=== PATIENT | female | born 1950 | race Caucasian/White ===

== ENCOUNTER 2018-12-08 12:14 | Emergency (ER) | payer MEDICARE ==
[~2018-12-08] VITALS: Ht 162.6 cm; Wt 54.1 kg
[~2018-12-08 12:14] MED LIST: AMOCLA875 PO; CALCAVITDA; CETI5 PO; CITA10S PO; CITA20 PO; FISH1000 PO; MULVITA PO; OMEP20ER PO; PROM25 PO; RANI150 PO; RISP1 PO; TOCO400; [UNRECOGNIZED DRUG - OTHER]
[2018-12-08 13:03] LABS: BASOPHILS ABSOLUTE AUTO 0.02 K/mm3 (0.00-0.23); BASOPHILS PERCENT AUTO 0 % (0-2); EOSINOPHILS ABSOLUTE AUTO 0.71 K/mm3 (0.00-0.68); EOSINOPHILS PERCENT AUTO 15 % (0-6); Hematocrit 31.8 % (33.0-51.0); IMMATURE GRAN ABSOLUTE AUTO 0.01 K/mm3 (0.00-0.10); IMMATURE GRAN PERCENT AUTO 0 % (0-1); LYMPHOCYTES ABSOLUTE AUTO 0.59 K/mm3 (0.84-5.20); LYMPHOCYTES PERCENT AUTO 12 % (21-46); MONOCYTES ABSOLUTE AUTO 0.33 K/mm3 (0.16-1.47); MONOCYTES PERCENT AUTO 7 % (4-13); Mean Corpuscular HGB 27.5 pg (26.0-34.0); Mean Corpuscular HGB Conc 31.4 g/dL (31.5-36.5); Mean Corpuscular Volume 88 fL (80-100); Mean Platelet Volume 9.8 fL (9.1-12.4); NEUTROPHILS ABSOLUTE AUTO 3.23 K/mm3 (1.96-9.15); NEUTROPHILS PERCENT AUTO 66 % (41-73); Platelet Count 254 K/mm3 (150-400); RDW Coefficient Variation 13.8 % (11.7-14.2); Red Blood Cell Count 3.63 M/mm3 (3.80-5.20); White Blood Cell Count 4.89 K/mm3 (4.00-11.30)
[2018-12-08 13:24] LABS: Alanine Aminotransfer (ALT/SGP 31 U/L (12-78); Albumin, Blood 3.7 g/dL (3.4-5.0); Albumin/Globulin Ratio 1.3 (0.8-1.8); Alk Phos 121 U/L (50-136); Anion Gap 9 mmol/L (6-16); Aspartate Aminotrans (AST/SGOT 32 U/L (12-37); Bilirubin, Total 0.8 mg/dL (0.1-1.0); Blood Urea Nitrogen 4 mg/dL (8-24); Bun/Creatinine Ratio 6.1 (12.0-20.0); CO2, Blood 25 mmol/L (21-32); Calcium, Blood 8.6 mg/dL (8.5-10.1); Chloride, Blood 101 mmol/L (98-108); Creatinine, Blood 0.65 mg/dL (0.40-1.00); Globulin, Blood 2.8 g/dL (2.2-4.0); Glomerular Filtration Rate >60 (60-); Glucose, Blood 99 mg/dL (70-99); Potassium, Blood 3.8 mmol/L (3.5-5.5); Sodium, Blood 135 mmol/L (136-145); Total Protein, Blood 6.5 g/dL (6.4-8.2); Troponin I <0.015 ng/mL (0.000-0.040)
== END 2018-12-08 16:29 | disposition home or self-care (01) ==
LOC: ER 12:14
PROVIDERS: Physician Assistant
DX: R00.2 Palpitations (principal); Z79.899 Other long term (current) drug therapy
CPT/HCPCS: 36415; 71046; 80053; 84484; 85025; 93005; 93010; 93225; 93226; 96360; 99285-25; J7030

== ENCOUNTER → 2019-01-04 | Outpatient (CLI) | payer MEDICARE ==
[~2019-01-04] MED LIST changes: +ANAS1
[2019-01-08 13:34] LABS: Stool Occult Bld Immuno 1 Positive (NEGATIVE); Stool Occult Bld Immuno 2 Positive (NEGATIVE)
== END | disposition home or self-care (01) ==
LOC: LAB SHORT 18:58 → LAB 18:58 → LAB FUT 01-01 11:00
PROVIDERS: Internal Medicine
DX: D50.9 Iron deficiency anemia, unspecified (principal)
CPT/HCPCS: G0328

== ENCOUNTER 2019-03-31 08:46 | Day surgery (SDC) | payer MEDICARE ==
[~2019-03-31] VITALS: Ht 162.6 cm; Wt 50.7 kg
[~2019-03-31 08:46] MED LIST changes: -ANAS1
[2019-03-31] MEDS ORDERED: ANAS1 (09:16)
== END 2019-03-31 10:42 | disposition home or self-care (01) ==
LOC: ORSCSDS 08:46
PROVIDERS: Surgery
PROC: 0DJD8ZZ Inspection of Lower Intestinal Tract, Via Natural or Artificial Opening Endoscopic (ICD-10-PCS; principal; 2019-03-31 10:00)
DX: R19.5 Other fecal abnormalities (principal); K57.30 Diverticulosis of large intestine without perforation or abscess without bleeding; K64.8 Other hemorrhoids; Z79.899 Other long term (current) drug therapy
CPT/HCPCS: J2704; J7120

== ENCOUNTER 2021-08-05 09:14 | Day surgery (SDC) | payer MEDICARE, OTHER ==
[~2021-08-05] VITALS: Ht 162.6 cm; Wt 56.8 kg
[~2021-08-05 09:14] MED LIST changes: +ANAS1 PO; +ATOR20 PO
--- NOTE | 2021-08-05 10:12 | NUR ---
Pre-Op teaching done. Pt verbalizes understanding. History, Chart, Medications and Allergies reviewed before start of procedure.
--- NOTE | 2021-08-05 11:29 | NUR ---
PT TOLERATING ORAL FLUIDS AND CHEESE. VSS. PT STATES NO FURTHER NEEDS AT THIS TIME. WILL CONTINUE TO MONITOR.
--- NOTE | 2021-08-05 12:21 | NUR ---
ASSUMED CARE OF PT. DENIES PAIN, TOLERATING PO. DRESSING D/I.
--- NOTE | 2021-08-05 12:52 | NUR ---
REPORT GIVEN TO ROCCO VELARDE RN.
--- NOTE | 2021-08-05 13:07 | NUR ---
Patient up to Ambulate independently. Gait steady. Discharge instructions reviewed with patient. Patient verbalizes understanding. Copy given to patient to take home. Discharged via wheelchair to private car for ride home.
== END 2021-08-05 22:44 | disposition home or self-care (01) ==
LOC: ORSCMMR 09:14 → ORD 10:30 → ORSCMMR 22:44
PROVIDERS: Surgery
PROC: 0JB70ZZ Excision of Back Subcutaneous Tissue and Fascia, Open Approach (ICD-10-PCS; principal; 2021-08-05 10:30)
DX: D17.1 Benign lipomatous neoplasm of skin and subcutaneous tissue of trunk (principal); J44.9 Chronic obstructive pulmonary disease, unspecified; Z87.891 Personal history of nicotine dependence; F31.9 Bipolar disorder, unspecified; F43.10 Post-traumatic stress disorder, unspecified; E78.5 Hyperlipidemia, unspecified; Z79.899 Other long term (current) drug therapy
CPT/HCPCS: 88304; A9270; J0690; J1100; J1885; J2370; J2405; J2704; J3010; J7120

== ENCOUNTER 2022-01-01 12:55 | Observation (INO) | payer MEDICARE, OTHER ==
[~2022-01-01] VITALS: Ht 162.6 cm; Wt 59.0 kg
[2022-01-01 14:08] LABS: BASOPHILS ABSOLUTE AUTO 0.05 K/mm3 (0.00-0.23); BASOPHILS PERCENT AUTO 1 % (0-2); EOSINOPHILS ABSOLUTE AUTO 0.37 K/mm3 (0.00-0.68); EOSINOPHILS PERCENT AUTO 7 % (0-6); Hemoglobin 12.5 g/dL (11.5-16.0); IMMATURE GRAN ABSOLUTE AUTO 0.01 K/mm3 (0.00-0.10); IMMATURE GRAN PERCENT AUTO 0 % (0-1); LYMPHOCYTES ABSOLUTE AUTO 0.91 K/mm3 (0.84-5.20); LYMPHOCYTES PERCENT AUTO 17 % (21-46); MONOCYTES ABSOLUTE AUTO 0.48 K/mm3 (0.16-1.47); MONOCYTES PERCENT AUTO 9 % (4-13); Mean Corpuscular HGB 30.7 pg (26.0-34.0); Mean Corpuscular HGB Conc 33.8 g/dL (31.5-36.5); Mean Corpuscular Volume 91 fL (80-100); Mean Platelet Volume 9.5 fL (9.1-12.4); NEUTROPHILS ABSOLUTE AUTO 3.44 K/mm3 (1.96-9.15); NEUTROPHILS PERCENT AUTO 65 % (41-73); Platelet Count 243 K/mm3 (150-400); RDW Coefficient Variation 12.9 % (11.7-14.2); RDW Standard Deviation 42.7 fL (35.1-46.3); Red Blood Cell Count 4.07 M/mm3 (3.80-5.20); White Blood Cell Count 5.26 K/mm3 (4.00-11.30)
[2022-01-01 14:25] LABS: Albumin, Blood 3.4 g/dL (3.4-5.0); Albumin/Globulin Ratio 1.3 (0.8-1.8); Bilirubin, Total 0.5 mg/dL (0.1-1.0); Bun/Creatinine Ratio 13.4 (12.0-20.0); Calcium, Blood 8.9 mg/dL (8.5-10.1); Creatinine, Blood 0.6 mg/dL (0.40-1.00); Globulin, Blood 2.7 g/dL (2.2-4.0); Potassium, Blood 4.1 mmol/L (3.5-5.5); Total Protein, Blood 6.1 g/dL (6.4-8.2)
[2022-01-01] MEDS ORDERED: ASPI81CH PO (16:34)
[2022-01-01] MEDS ORDERED: ATORVASTATIN CA20 MG PO (20:55)
[2022-01-01] MEDS ORDERED: ANASTROZOLE1 M7 PO (20:55)
[2022-01-02 04:42] LABS: BASOPHILS ABSOLUTE AUTO 0.07 K/mm3 (0.00-0.23); BASOPHILS PERCENT AUTO 1 % (0-2); EOSINOPHILS ABSOLUTE AUTO 0.41 K/mm3 (0.00-0.68); EOSINOPHILS PERCENT AUTO 8 % (0-6); Hematocrit 36.6 % (33.0-51.0); Hemoglobin 11.9 g/dL (11.5-16.0); IMMATURE GRAN PERCENT AUTO 0 % (0-1); LYMPHOCYTES ABSOLUTE AUTO 1.37 K/mm3 (0.84-5.20); LYMPHOCYTES PERCENT AUTO 27 % (21-46); MONOCYTES ABSOLUTE AUTO 0.53 K/mm3 (0.16-1.47); MONOCYTES PERCENT AUTO 10 % (4-13); Mean Corpuscular HGB 29.9 pg (26.0-34.0); Mean Corpuscular HGB Conc 32.5 g/dL (31.5-36.5); Mean Corpuscular Volume 92 fL (80-100); Mean Platelet Volume 9.4 fL (9.1-12.4); NEUTROPHILS ABSOLUTE AUTO 2.79 K/mm3 (1.96-9.15); NEUTROPHILS PERCENT AUTO 54 % (41-73); Platelet Count 222 K/mm3 (150-400); RDW Coefficient Variation 12.8 % (11.7-14.2); RDW Standard Deviation 43.6 fL (35.1-46.3); Red Blood Cell Count 3.98 M/mm3 (3.80-5.20); White Blood Cell Count 5.17 K/mm3 (4.00-11.30)
--- NOTE | 2022-01-02 04:43 | NUR ---
SHIFT SUMMARY: PATIENT ADMITTED FROM ED FOR NEAR SYNCOPE AND CHEST PAIN. PATIENT DENIES CHEST PAIN/PRESSURE AT TIME OF ADMIT. TELE = NSR. CON BIOX SAT > 96% ON RA. AMBULATES TO BATHROOM STEADY GAIT WITHOUT USE OF ASSISTIVE DEVICES, SBA FOR SAFETY. ORTHOSTATIC VITALS COMPLETED, SEE FLOWSHEET FOR DETAILS. HEADACHE TREATED PER EMAR.
[2022-01-02 05:02] LABS: Bun/Creatinine Ratio 9.2 (12.0-20.0); Calcium, Blood 8.7 mg/dL (8.5-10.1); Creatinine, Blood 0.55 mg/dL (0.40-1.00); Potassium, Blood 3.9 mmol/L (3.5-5.5)
--- NOTE | 2022-01-02 16:56 | NUR ---
DISCHARGE NOTE: PT WAS DISCHARGED TO CARE OF [facility] TRANSPORT TO HOME. RN REVIEWED DISCHARGE INSTRUCTIONS WITH PT'S SPOUSE. REMOVED IV FROM LEFT AC, PT TOLERATED PROCEDURE WELL. PT WAS DISCHARGED WITH ALL BELONGINGS.
--- NOTE | 2022-01-02 17:49 | NUR ---
SHIFT SUMMARY PT UNDERWENT ONE DAY PROTOCOL STRESS TEST WITH NORMAL RESULTS. OK FOR DISCHARGE. RN REVIEWED HOME DISCHARGE INSTRUCTIONS WITH PT AND PT'S FAMILY. REVIEWED IV, PT TOLERATED PROCEDURE WELL. PT WITH HX OF ANXIETY, REQUESTED FEMALE POWDER CORE TESTER PRESENT IN ROOM WHENEVER A MALE STAFF WAS PROVIDING CARE. PT COMMENTING ON FATIGUE, CHRONIC BACK PAIN. PT STATES SHE WILL CALL MD TO FOLLOW UP WITHIN ONE WEEK.
--- NOTE | 2022-01-02 18:02 | NUR ---
DISCHARGE NOTE PT WAS DISCHARGED AT 1754 VIA WHEELCHAIR PROPELLED BY NETWORK DESIGNER TO PRIVATE VEHICLE DRIVEN BY FAMILY. PT WAS DISCHARGED WITH ALL PERSONAL BELONGINGS AND A COPY OF DISCHARGE INSTRUCTIONS. PT TOLERATED TRANSPORT WELL.
== END 2022-01-02 17:54 | disposition home or self-care (01) ==
LOC: ER 12:55 → MEDS 19:30 → ER 19:30 → MEDS 21:21
PROVIDERS: Family Medicine; Physician Assistant; ADMIT Internal Medicine
DX: R07.89 Other chest pain (principal); R55 Syncope and collapse; F32.A Depression, unspecified; J44.9 Chronic obstructive pulmonary disease, unspecified; R00.2 Palpitations; E78.5 Hyperlipidemia, unspecified
CPT/HCPCS: 36415; 71046; 78452; 80048; 80053; 83690; 83735; 84443; 84484; 85025; 93005; 93010; 93017; 93306; 94760; 94762; 99285-25; A9270; A9500; G0378; J0706; J1650; J2785; J7030

== ENCOUNTER 2022-03-18 12:21 | Emergency (ER) | payer MEDICARE, OTHER ==
[~2022-03-18] VITALS: Ht 175.3 cm; Wt 59.0 kg
[~2022-03-18 12:21] MED LIST changes: +ANASTROZOLE1 M7 PO; +ASPI81CH PO; +ATORVASTATIN CA20 MG PO
[2022-03-18 13:03] LABS: BASOPHILS ABSOLUTE AUTO 0.05 K/mm3 (0.00-0.23); BASOPHILS PERCENT AUTO 1 % (0-2); EOSINOPHILS ABSOLUTE AUTO 0.25 K/mm3 (0.00-0.68); EOSINOPHILS PERCENT AUTO 5 % (0-6); Hematocrit 38.7 % (33.0-51.0); Hemoglobin 12.8 g/dL (11.5-16.0); IMMATURE GRAN ABSOLUTE AUTO 0.02 K/mm3 (0.00-0.10); IMMATURE GRAN PERCENT AUTO 0 % (0-1); LYMPHOCYTES ABSOLUTE AUTO 1.15 K/mm3 (0.84-5.20); LYMPHOCYTES PERCENT AUTO 23 % (21-46); MONOCYTES ABSOLUTE AUTO 0.46 K/mm3 (0.16-1.47); MONOCYTES PERCENT AUTO 9 % (4-13); Mean Corpuscular HGB 30.5 pg (26.0-34.0); Mean Corpuscular HGB Conc 33.1 g/dL (31.5-36.5); Mean Corpuscular Volume 92 fL (80-100); Mean Platelet Volume 9.5 fL (9.1-12.4); NEUTROPHILS PERCENT AUTO 62 % (41-73); Platelet Count 205 K/mm3 (150-400); RDW Coefficient Variation 12.8 % (11.7-14.2); RDW Standard Deviation 43.3 fL (35.1-46.3); White Blood Cell Count 5.03 K/mm3 (4.00-11.30)
[2022-03-18 13:31] LABS: Albumin, Blood 3.5 g/dL (3.4-5.0); Albumin/Globulin Ratio 1.2 (0.8-1.8); Bilirubin, Total 0.5 mg/dL (0.1-1.0); Bun/Creatinine Ratio 27.8 (12.0-20.0); Calcium, Blood 8.8 mg/dL (8.5-10.1); Creatinine, Blood 0.61 mg/dL (0.40-1.00); Globulin, Blood 2.9 g/dL (2.2-4.0); Magnesium, Blood 2.1 mg/dL (1.6-2.4); Potassium, Blood 4.1 mmol/L (3.5-5.5); Thyroid Stimulating Hormone 0.928 uIU/mL (0.360-4.800); Total Protein, Blood 6.4 g/dL (6.4-8.2)
== END 2022-03-18 15:44 | disposition home or self-care (01) ==
LOC: ER 12:21
PROVIDERS: Physician Assistant
DX: R00.2 Palpitations (principal); F32.A Depression, unspecified; Z79.899 Other long term (current) drug therapy; Z79.82 Long term (current) use of aspirin
CPT/HCPCS: 36415; 71045; 80053; 83735; 84443; 84484; 85025; 93005; 93010

== ENCOUNTER → 2022-09-26 | Outpatient (CLI) | payer MEDICARE, OTHER ==
[2022-09-26 19:02] LABS: BASOPHILS ABSOLUTE AUTO 0.06 K/mm3 (0.00-0.23); BASOPHILS PERCENT AUTO 1 % (0-2); EOSINOPHILS ABSOLUTE AUTO 0.14 K/mm3 (0.00-0.68); EOSINOPHILS PERCENT AUTO 2 % (0-6); Hematocrit 36.4 % (33.0-51.0); Hemoglobin 11.9 g/dL (11.5-16.0); IMMATURE GRAN ABSOLUTE AUTO 0.02 K/mm3 (0.00-0.10); IMMATURE GRAN PERCENT AUTO 0 % (0-1); LYMPHOCYTES ABSOLUTE AUTO 1.09 K/mm3 (0.84-5.20); LYMPHOCYTES PERCENT AUTO 14 % (21-46); MONOCYTES PERCENT AUTO 9 % (4-13); Mean Corpuscular HGB 29.6 pg (26.0-34.0); Mean Corpuscular HGB Conc 32.7 g/dL (31.5-36.5); Mean Corpuscular Volume 91 fL (80-100); Mean Platelet Volume 9.5 fL (9.1-12.4); NEUTROPHILS ABSOLUTE AUTO 5.68 K/mm3 (1.96-9.15); NEUTROPHILS PERCENT AUTO 74 % (41-73); Platelet Count 287 K/mm3 (150-400); RDW Coefficient Variation 13.4 % (11.7-14.2); Red Blood Cell Count 4.02 M/mm3 (3.80-5.20); White Blood Cell Count 7.69 K/mm3 (4.00-11.30)
[2022-09-26 20:04] LABS: Albumin, Blood 3.6 g/dL (3.4-5.0); Albumin/Globulin Ratio 1.2 (0.8-1.8); Bilirubin, Total 0.3 mg/dL (0.1-1.0); Calcium, Blood 8.7 mg/dL (8.5-10.1); Creatinine, Blood 0.59 mg/dL (0.40-1.00); Potassium, Blood 4.4 mmol/L (3.5-5.5); Thyroid Stimulating Hormone 0.719 uIU/mL (0.360-4.800); Total Protein, Blood 6.6 g/dL (6.4-8.2)
== END | disposition home or self-care (01) ==
LOC: LAB 17:53 → LAB SHORT 17:53
PROVIDERS: Student in an Organized Health Care Education/Training Program
DX: R00.2 Palpitations (principal)
CPT/HCPCS: 80053; 84443; 85025

== ENCOUNTER 2022-11-03 10:50 | Observation (INO) | payer MEDICARE, OTHER ==
[~2022-11-03] VITALS: Ht 170.2 cm; Wt 58.9 kg
[2022-11-03 11:32] LABS: BASOPHILS ABSOLUTE AUTO 0.06 K/mm3 (0.00-0.23); BASOPHILS PERCENT AUTO 2 % (0-2); EOSINOPHILS ABSOLUTE AUTO 0.14 K/mm3 (0.00-0.68); EOSINOPHILS PERCENT AUTO 4 % (0-6); Hematocrit 38.8 % (33.0-51.0); Hemoglobin 13.2 g/dL (11.5-16.0); IMMATURE GRAN PERCENT AUTO 0 % (0-1); LYMPHOCYTES ABSOLUTE AUTO 0.82 K/mm3 (0.84-5.20); LYMPHOCYTES PERCENT AUTO 21 % (21-46); MONOCYTES ABSOLUTE AUTO 0.36 K/mm3 (0.16-1.47); MONOCYTES PERCENT AUTO 9 % (4-13); Mean Corpuscular HGB 29.6 pg (26.0-34.0); Mean Corpuscular Volume 87 fL (80-100); Mean Platelet Volume 8.8 fL (9.1-12.4); NEUTROPHILS PERCENT AUTO 65 % (41-73); Platelet Count 268 K/mm3 (150-400); RDW Coefficient Variation 13.4 % (11.7-14.2); RDW Standard Deviation 42.7 fL (35.1-46.3); Red Blood Cell Count 4.46 M/mm3 (3.80-5.20); White Blood Cell Count 3.98 K/mm3 (4.00-11.30)
[2022-11-03 11:50] LABS: Ethanol (Alcohol), Blood, Med <3 mg/dL; Salicylate <1.7 mg/dL (2.8-20.0)
[2022-11-03 11:53] LABS: Acetaminophen, Random <2.0 ug/mL (10.0-30.0); Alanine Aminotransfer (ALT/SGP 27 U/L (12-78); Albumin, Blood 3.8 g/dL (3.4-5.0); Albumin/Globulin Ratio 1.3 (0.8-1.8); Alk Phos 112 U/L (50-136); Anion Gap 3 mmol/L (6-16); Aspartate Aminotrans (AST/SGOT 20 U/L (12-37); Bilirubin, Total 1.1 mg/dL (0.1-1.0); Blood Urea Nitrogen 7 mg/dL (8-24); Bun/Creatinine Ratio 13.7 (12.0-20.0); CO2, Blood 27 mmol/L (21-32); Calcium, Blood 8.9 mg/dL (8.5-10.1); Chloride, Blood 91 mmol/L (98-108); Creatinine, Blood 0.51 mg/dL (0.40-1.00); Glomerular Filtration Rate 100 (60-); Glucose, Blood 95 mg/dL (70-99); Potassium, Blood 4.2 mmol/L (3.5-5.5); Sodium, Blood 121 mmol/L (136-145); Total Protein, Blood 6.8 g/dL (6.4-8.2)
[2022-11-03 12:41] LABS: Source, Urine Clean Catch
[2022-11-03 12:50] LABS: Bilirubin, Urine Neg (Neg); Blood, Urine Neg (Neg); Glucose Qualitative, Urine Neg (Neg); Ketones, Urine 1+ (Neg); Leukocyte Esterase, Urine Neg (Neg); Nitrite, Urine Neg (Neg); Protein, Urine Neg (Neg); Specific Gravity, Urine 1.005 (1.003-1.022); Urobilinogen, Urine NORM (Normal)
[2022-11-03 13:04] LABS: Appearance, Urine Clear (Clear); Color, Urine Yellow (P-Yellow)
[2022-11-03 13:18] LABS: U Amphetamine Screen Not Detected; U Barbituate Screen Not Detected; U Benzodiazapine Screen Not Detected; U Buprenorphine Screen Not Detected; U Cannabinoids Screen Not Detected; U Cocaine Screen Not Detected; U Methadone Screen Not Detected; U Methamphetamine Screen Not Detected; U Opiates Screen Not Detected; U Oxycodone Screen Not Detected; U Phencyclidine Screen Not Detected; U Propoxyphene Screen Not Detected
[2022-11-03 17:17] VITALS: BP 155/67
--- NOTE | 2022-11-03 17:50 | NUR ---
PT ARRIVED TO ROOM VIA CART AT 1715 WITH NO DISTRESS NOTED AND SITTER ACCOMPANIED HER. PT WAS SETTLED INTO ROOM AND CALL LIGHT IS WITHIN REACH. NO DISTRESS NOTED AT THIS TIME AOX4 WILL CONTINUE TO MONITOR.
[2022-11-03 20:23] LABS: Bun/Creatinine Ratio 16.5 (12.0-20.0); Calcium, Blood 8.6 mg/dL (8.5-10.1); Creatinine, Blood 0.55 mg/dL (0.40-1.00); Potassium, Blood 3.9 mmol/L (3.5-5.5)
--- NOTE | 2022-11-03 21:03 | NUR ---
PT DENIES SI WHEN ASKED, BUT SITTERS REPORTED SI VERBALIZATIONS NOTED WJHILE MONITORING PT
[2022-11-03 21:33] VITALS: BP 142/70
--- NOTE | 2022-11-03 21:50 | NUR ---
START OF SHIFT THIS STUDENT NURSE WAS INTRODUCED TO SCOOBY BY NURSE HOPSON DURING SHIFT CHANGE. PATIENT STATED A PREFERENCE OF NO MALE CARE. THIS STUDENT NURSE ASSUMED PATIENT CARE UNDER THE OBSERVATION OF NURSE WHIT KAUFMAN AT 1900. PT WAS UNDER DIRECT OBSERVATION FROM [facility] DUE TO IDEATIONS OF SELF HARM. PATIENT WAS A&O X4. BED RAILS UP ON LEFT SIDE. PATIENT LEFT IN A STATE OF COMFORT. BED IN LOW POSITION. FLOORS CLEAR OF DEBRIS.
--- NOTE | 2022-11-03 21:56 | NUR ---
THIS STUDENT NURSE UNDER THE OBSERVATION OF NURSE WHIT KAUFMAN ADMINISTERED ACETAMINOPHEN AND SODIUM CHLORIDE PO TO PATIENT. PT VERBALIZED A HEADACHE, REASSESMENT FOUND THE PAIN WAS REDUCED BUUT STILL PRESENT. THIS STUDENT NURSE UNDER THE OBSERVATION OF WHIT KAUFMAN PERFORMED A PHYSICAL ASSESSMENT AT 2100. PT INITIALLY REFUSED AN ASSESSMENT UNTIL I FURTHER EXPLAINED WHAT I NEEDED TO DO AND THE PATIENT GAVE PERMISSION. THIS STUDENT NURSE STATED EACH ASSESSMENT BEING PERFORMED PRIOR TO PERFORMING TO ASSURE PATIENT COMFORT AND CONSENT.
[2022-11-03 21:58] VITALS: BP 135/71
--- NOTE | 2022-11-03 22:08 | NUR ---
WIRE LATHER DOCUMENTATION REVIEWED. I AGREE WITH SAID INFO DOCUMENTED OF JUANITA SHEFFIELD
[2022-11-04 04:10] VITALS: BP 122/60
--- NOTE | 2022-11-04 04:10 | NUR ---
SHIFT SUMMARY THIS STUDENT NURSE UNDER THE OBSERVATION OF WHIT KAUFMAN ADDRESSED PT'S HYPONATREMIA BY ADMINISTERING THE PRESCRIBED SODIUM CHLORIDE MEDICATION PO ALONG WITH FOLLOWING THE 1,200 ML FLUID RESTRICTION RECOMMENDATION. ALYCE REMAINED FREE FROM INJURY DURING MY SHIFT ON 11/03/22 FROM 1830 UNTIL 0700 ON 11/04/22. 1:1 SITTER REMAINED IN ROOM THROUGHOUT THE SHIFT DUE TO SUICIDAL IDEATIONS. VITAL SIGNS REMAINED STABLE, PT DEVELOPED LOW GRADE FEVER AROUND 0400. TYLENOL ADMINISTERED FOR PAIN PREVIOUSLY WILL FOLLOW UP ON SYMPTOMS. CALL LIGHT WITHIN REACH, BED IN LOWEST POSITION, SIDE RAIL UP.
[2022-11-04 04:55] LABS: BASOPHILS ABSOLUTE AUTO 0.06 K/mm3 (0.00-0.23); BASOPHILS PERCENT AUTO 1 % (0-2); EOSINOPHILS ABSOLUTE AUTO 0.19 K/mm3 (0.00-0.68); EOSINOPHILS PERCENT AUTO 4 % (0-6); Hematocrit 35.6 % (33.0-51.0); Hemoglobin 12.5 g/dL (11.5-16.0); IMMATURE GRAN PERCENT AUTO 0 % (0-1); LYMPHOCYTES PERCENT AUTO 24 % (21-46); MONOCYTES ABSOLUTE AUTO 0.73 K/mm3 (0.16-1.47); MONOCYTES PERCENT AUTO 14 % (4-13); Mean Corpuscular HGB Conc 35.1 g/dL (31.5-36.5); Mean Corpuscular Volume 86 fL (80-100); Mean Platelet Volume 8.7 fL (9.1-12.4); NEUTROPHILS ABSOLUTE AUTO 2.93 K/mm3 (1.96-9.15); NEUTROPHILS PERCENT AUTO 57 % (41-73); Platelet Count 276 K/mm3 (150-400); RDW Coefficient Variation 13.5 % (11.7-14.2); Red Blood Cell Count 4.16 M/mm3 (3.80-5.20); White Blood Cell Count 5.11 K/mm3 (4.00-11.30)
[2022-11-04 05:19] LABS: Bun/Creatinine Ratio 26.5 (12.0-20.0); Calcium, Blood 8.7 mg/dL (8.5-10.1); Creatinine, Blood 0.57 mg/dL (0.40-1.00); Potassium, Blood 4.3 mmol/L (3.5-5.5)
[2022-11-04 06:44] VITALS: BP 93/80
[2022-11-04 07:17] VITALS: BP 150/72
--- NOTE | 2022-11-04 10:21 | NUR ---
PT ASSESSED BY DR. CLEVELAND WITH A VERBAL CONSENT TO DC'D SI ORDERS. PT STATED HAVING NO PLAN, THOUGHTS OR PAST THOUGHTS OF HARMING SELF.
--- NOTE | 2022-11-04 13:01 | NUR ---
Upon receiving a request for spiritual care, I visited patient. She tells me personal information, I hear confession and provide therapeutic listening. I give gentle membership counselor concerning some of her hyper jain views and bring theological insights to some areas of mental and emotional anguish. The patient responded well and showed signs of catharsis and increased peace. The [employer] [facility] will follow up with communion and I will remain available to patient and family.
[2022-11-04 15:39] VITALS: BP 120/67
--- NOTE | 2022-11-04 16:34 | NUR ---
SHIFT SUMMARY: PT A&O X4, PLEASANT, ABLE TO MAKE NEEDS KNOWN AND COMMUCAITES WITH STAFF. PT HAS SPIRTUAL DELUSIONS AND THOUGHTS. PT SI PRECATUIONS DC'D VERBAL ORDER BY DR. CLEVELAND. PT INDEPENDANT IN THE ROOM AND WITH MEALS. PT HAD MILD COMPLAINTS OF HEADACHE, PT MEDICATED PER EMAR PROTOCOL. PT IN BED WITH CALL LIGHT WITHIN REACH.
[2022-11-04 20:39] VITALS: BP 140/68
--- NOTE | 2022-11-05 04:02 | NUR ---
SHIFT SUMMARY PT ADMITTED WITH HYPONATREMIA. PT PLEASANT AND VERY SOFT SPOKEN. EASILY OVERWHELMED WITH NOISES. AMBULATES INDEPENDENTLY TO BATHROOM. HAD HEADACHE DURING SHIFT, ADMIN 650MG TYLENOL PER EMAR. PAIN LEVEL FROM 8 TO 4, AND PT ABLE TO SLEEP. CONCERNED ABOUT SPEAKING WITH MALE NURSES, REQUESTED FEMALE ONLY. DURING SHIFT, ASKED TO SPEAK TO MALE RN BECAUSE "HE HELPED ME, AND HE'S A TRUSTWORTHY PERSON" INSISTED SEVERAL TIMES. WHEN UNABLE TO HAVE MALE RN SPEAK WITH HER, BEGAN CRYING SHE WAS "AFRAID TO LOSE MY TUYET BECAUSE I NEED TO TALK WITH HIM." ABLE TO CALM PT WITH BREATHING EXERCISES. EXPLAINED THAT RN WAS WITH ANOTHER PT, BUT HER RN COULD COME SPEAK WITH HER, OR SHE COULD TALK WITH THIS STUDENT NURSE, IF SHE NEEDED SOMEONE TO TALK TO. PT HAS HX OF SPIRITUAL DELUSIONS, BUT HAS NOT MENTIONED ANY DURING THIS SHIFT. PT ABLE TO TAKE PO MEDS WITHOUT DIFFICULTY. ABLE TO REPOSITION INDEPENDENTLY. PT ORDERED AHA DIET WITH NO FREE WATER DT HYPONATREMIA. STATES SHE HAS MUSCLE PAIN BEHIND RIGHT KNEE. AWAITING POSSIBLE HOME HEALTH REFERRAL FOR DC.
[2022-11-05 04:03] VITALS: BP 152/69
--- NOTE | 2022-11-05 05:04 | NUR ---
CTA NOTE I HAVE READ THE HAND CANDY CUTTER'S DOCUMENTATION AND I AGREE WITH HER CHARTING. FOR SHIFT SUMMARY SEE HAND CANDY CUTTER NOTES
[2022-11-05 06:11] LABS: Bun/Creatinine Ratio 43.7 (12.0-20.0); Calcium, Blood 8.7 mg/dL (8.5-10.1); Creatinine, Blood 0.53 mg/dL (0.40-1.00); Potassium, Blood 4.6 mmol/L (3.5-5.5)
--- NOTE | 2022-11-05 07:15 | NUR ---
ASSUMED CARE: PT RESTING QUIETLY IN BED, WORKING WITH ROSARY. INDEPENDENT IN ROOM. NO ACUTE NEEDS OR CONCERNS AT PRESENT.
[2022-11-05 07:24] VITALS: BP 133/61
[2022-11-05] MEDS ORDERED: SODCHL1 PO (10:48)
--- NOTE | 2022-11-05 12:15 | NUR ---
Upon receiving a request from the patient, I return to speak with the patient. She immediately tells me about the tears she has cried for because of the guilt that she feels because of her past sins, even though she has confessed those sins to a press tender during confession. I then reviewed with her what her yeni tradition says about feelings of guilt and about the freedom, forgiveness and advent on receives because of the work of the cross. Patient talks about the voices she hears in the hallway outside her rm that tells others about her sins and that she is no longer welcome in the christian. I provide theological insights explaining her security in the christian and with God, regardless of the voices that she hears. I also supply the patient with a Buddhism Bible to help remind her of her value and place in the family of GOd. Patient responded well and showed signs of increased peace and an easing of her spiritual distress.
--- NOTE | 2022-11-05 13:01 | NUR ---
PT HAD A VISIT WITH SOLID WASTE MANAGER WHILE SHE WAITED FOR HER FRIEND TO ARRIVE. WHEN FRIEND ARRIVED PT WAS ESCORTED OUT VIA WHEEL CHAIR. DC PLANNING ENSURED THAT SHE HAD FOLLOW UP APPOINTMENTS WITH PCP AND PSYCHIATRIST. PT WAS PROVIDED WITH THESE INSTRUCTIONS AND A CUP WITH MEASUREMENTS TO HELP HER WITH FREE WATER RESTRICTION. DENIED FURTHER QUESTIONS OR CONCERNS.
== END 2022-11-05 13:01 | disposition home or self-care (01) ==
LOC: ER 10:50 → MEDS 10:51
PROVIDERS: Physician Assistant; ADMIT Family Medicine
DX: E87.1 Hypo-osmolality and hyponatremia (principal); D72.819 Decreased white blood cell count, unspecified; F29 Unspecified psychosis not due to a substance or known physiological condition; F43.10 Post-traumatic stress disorder, unspecified; F32.A Depression, unspecified; Z85.3 Personal history of malignant neoplasm of breast; Z23 Encounter for immunization
CPT/HCPCS: 36415; 70450; 80048; 80053; 81003; 83930; 83935; 84300; 85025; 90471; 90714; 93005; 93010; 96372; 99285-25; A9270; G0378; G0480; J1650; J1885; Q3014

== ENCOUNTER 2022-11-06 14:10 | Inpatient (IN) | payer MEDICARE, OTHER ==
[~2022-11-06] VITALS: Ht 165.1 cm; Wt 58.0 kg
[~2022-11-06 14:10] MED LIST changes: +SODCHL1 PO
[2022-11-06 15:05] LABS: BASOPHILS ABSOLUTE AUTO 0.04 K/mm3 (0.00-0.23); BASOPHILS PERCENT AUTO 0 % (0-2); EOSINOPHILS ABSOLUTE AUTO 0.01 K/mm3 (0.00-0.68); EOSINOPHILS PERCENT AUTO 0 % (0-6); Hematocrit 33.8 % (33.0-51.0); Hemoglobin 11.8 g/dL (11.5-16.0); IMMATURE GRAN ABSOLUTE AUTO 0.03 K/mm3 (0.00-0.10); IMMATURE GRAN PERCENT AUTO 0 % (0-1); LYMPHOCYTES ABSOLUTE AUTO 0.67 K/mm3 (0.84-5.20); LYMPHOCYTES PERCENT AUTO 7 % (21-46); MONOCYTES ABSOLUTE AUTO 0.72 K/mm3 (0.16-1.47); MONOCYTES PERCENT AUTO 7 % (4-13); Mean Corpuscular HGB 30.3 pg (26.0-34.0); Mean Corpuscular HGB Conc 34.9 g/dL (31.5-36.5); Mean Corpuscular Volume 87 fL (80-100); Mean Platelet Volume 9.4 fL (9.1-12.4); NEUTROPHILS ABSOLUTE AUTO 8.78 K/mm3 (1.96-9.15); NEUTROPHILS PERCENT AUTO 86 % (41-73); Platelet Count 287 K/mm3 (150-400); RDW Coefficient Variation 13.6 % (11.7-14.2); RDW Standard Deviation 42.6 fL (35.1-46.3); White Blood Cell Count 10.25 K/mm3 (4.00-11.30)
[2022-11-06 15:29] LABS: Albumin/Globulin Ratio 1.3 (0.8-1.8); Bilirubin, Total 0.7 mg/dL (0.1-1.0); Bun/Creatinine Ratio 28.9 (12.0-20.0); Calcium, Blood 9.1 mg/dL (8.5-10.1); Creatinine, Blood 0.42 mg/dL (0.40-1.00); Magnesium, Blood 1.7 mg/dL (1.6-2.4); Phosphorus, Blood 2.6 mg/dL (2.5-4.9); Potassium, Blood 4.4 mmol/L (3.5-5.5)
[2022-11-06 18:22] LABS: Source, Urine Clean Catch
[2022-11-06 18:30] LABS: Appearance, Urine Clear (Clear); Bilirubin, Urine Neg (Neg); Blood, Urine Neg (Neg); Glucose Qualitative, Urine Neg (Neg); Ketones, Urine 1+ (Neg); Leukocyte Esterase, Urine Neg (Neg); Nitrite, Urine Neg (Neg); Protein, Urine Neg (Neg); Specific Gravity, Urine 1.005 (1.003-1.022); Urobilinogen, Urine NORM (Normal)
[2022-11-06 18:45] LABS: Color, Urine Pale Yellow (P-Yellow)
[2022-11-06 18:56] LABS: Creatinine, Urine Random 9.44 mg/dL (27.00-270.00); Uric Acid, Urine Random 7.7 mg/dL (7.5-49.5)
[2022-11-06 19:49] LABS: Bun/Creatinine Ratio 20.4 (12.0-20.0); Calcium, Blood 8.4 mg/dL (8.5-10.1); Creatinine, Blood 0.44 mg/dL (0.40-1.00); Potassium, Blood 4.2 mmol/L (3.5-5.5)
[2022-11-06 22:15] VITALS: BP 135/61
[2022-11-07 03:15] VITALS: BP 134/58
--- NOTE | 2022-11-07 04:51 | NUR ---
PT TRANSFERRED FROM ED- REPORT FROM [facility] RN- 2 SONS IN ROOM DURING ASSESSMENT, PT COVERED HEAD WITH JACKET PAPPAS WHEN ASKING QUESTIONS, PT A&O X 4 WITH MOMENTS OF CONFUSION WITH HISTORY- PT ABLE TO STATED HER MEDICATIONS SHE TAKES- PT REPORTED HAVING AUDIBLE AND VISIBLE HALLUCINATIONS, PT DENIED FEAR OF THE HALLUCINATIONS, PT ON 1500ML FLUID RESTRICTION, PT TOOK MEDICATIONS WITH GATORADE WITHOUT PROBLEMS, CALL TO DR. BRITO RE; SLEEP AIDE PER PT'S FAMILY REQUEST- HELD MEDICATION FOR PT DROWSY AND SLEEPING WITHOUT PROBLEMS, FAMILY AT BEDSIDE T/O NIGHT ASSISTING WITH MONITORING PT- BED LOW POSITION, CALL LIGHT WITHIN REACH, BED ALARM IN PLACE
[2022-11-07 06:45] LABS: Calcium, Blood 8.6 mg/dL (8.5-10.1); Creatinine, Blood 0.67 mg/dL (0.40-1.00); Potassium, Blood 3.9 mmol/L (3.5-5.5)
[2022-11-07 07:11] VITALS: BP 107/55
--- NOTE | 2022-11-07 10:54 | NUR ---
PT REQUESTING A SOFT DIET BECAUSE SHE CANNOT CHEW THE FOOD. DIET UPDATED PER PROTOCOL.
--- NOTE | 2022-11-07 10:56 | NUR ---
Pt. requested a rosary. This snow remover provided one at approx. 10:45am. Pt. verbalized gratitude for the rosary. Updated Pts. nurse.
[2022-11-07 15:20] VITALS: BP 102/63
--- NOTE | 2022-11-07 15:53 | NUR ---
SHIFT SUMMARY PT IS ALERT AND ORIENTED X4. SURROUNDED BY FAMILY. ABLE TO MAKE NEEDS KNOWN. UNDERSTANDING OF FLUID RESTRICTION AND USES CALL LIGHT APPROPRIATELY. CONFUSED AT TIMES BUT EASILY REDIRECTED. STAND BY ASSIST TO THE BATHROOM. PSHYC CONSULT ORDERED. PT IS PARANIOD. BED IS IN THE LOWEST POSITION WITH BED ALARM ON AND CALL LIGHT IN REACH.
[2022-11-07 21:34] VITALS: BP 124/65
[2022-11-08 05:34] VITALS: BP 110/59
--- NOTE | 2022-11-08 06:25 | NUR ---
SHIFT SUMMARY BEDSIDE REPORT DONE- PT SON AND DAUGHTER IN LAW INVOLVED WITH REPORT- PT REQUESTED TO HAVE FEMALE STAFF ONLY- PT STATED TO THIS NURSE THAT SHE IS FEARFUL OF MEN AND SHE WAS SCARED OF THE MALE VISUAL DESIGNER- REASSURED PT THAT SHE WOULD BE ASSIGNED FEMALE STAFF AND IF MALE HAD TO COME IN TO ROOM THAT A WOMAN WOULD ACCOMPANY- PT TOOK SCHEDULED MEDS - PT CONCERNED THAT THEY COULD BE POISION, REASSURED PT THAT THEY ARE NOT POISION, PT TOOK THE MEDICATIONS- FAMILY REPORTED THAT PT WAS RESTLESS UNABLE TO FALL ASLEEP- CALL TO RINKU SHELLEY RE: SLEEP AIDE- PT AGREED TO TAKE MELATONIN- SON AND DAUGHTER IN LAW BEDSIDE T/O NIGHT, BED LOW POSITION, CALL LIGHT WITHIN REACH, BED ALARM IN PLACE
[2022-11-08 07:34] VITALS: BP 117/62
[2022-11-08 07:35] VITALS: BP 117/62
[2022-11-08 08:34] LABS: Calcium, Blood 8.6 mg/dL (8.5-10.1); Creatinine, Blood 0.61 mg/dL (0.40-1.00); Potassium, Blood 4.3 mmol/L (3.5-5.5)
[2022-11-08 16:15] VITALS: BP 132/71
--- NOTE | 2022-11-08 18:02 | NUR ---
SHIFT SUMMARY: PT CONTINUES TO HAVE AUDITORY HALLUCINATIONS ABOUT PEOPLE WANTING TO KILL HER OR HER CHILDREN, DENIES VH. ORIENTED X 4, BUT CLAIMS SHE HEARS HER "INTERNAL VOICE" OR "THE HOLY SPIRIT" DEPENDING ON THE SUBJECT. WAS TEARFUL DURING CONVERSATION TODAY; EDUCATED HER TO REMEMBER THAT THE VOICES SHE HEARS ARE COMING FROM HER BRAIN, THEY ARE NOT REAL AND THAT SHE IS SAFE HERE. DENIED PAIN. GETTING UP TO BR WITH FWW AND SBA. C/O BRIEFLY OF "NOT GETTING ANYTHING TO DRINK"; EDUCATED HER ABOUT THE CAUSE OF HER HYPONATREMIA (WATER INGESTION), THE FLUID RESTRICTION (SHE HAD ALREADY HAD ~ HALF OF THE 1500 ML BY 1400), AND THAT SHE BEEDED TO SAVE SOME OF HER FLUID ALLOTTMENT FOR THE REST OF THE DAY/NIGHT AND SHE VERBALIZED UNDERSTANDING. TOLERATING HER DIET. HER SON DALY STATED THAT SHE MAY NEED ADDITIONAL SLEEPING MEDICATION TONIGHT SHE WAS AWKW AND UP AND DOWN ALL NIGHT LAST NIGHT. THE EFFECT OF TOO MUCH WATER (
[2022-11-08 19:28] VITALS: BP 149/77
[2022-11-09 04:25] VITALS: BP 133/71
[2022-11-09 05:42] LABS: Bun/Creatinine Ratio 20.5 (12.0-20.0); Calcium, Blood 8.8 mg/dL (8.5-10.1); Creatinine, Blood 0.59 mg/dL (0.40-1.00); Potassium, Blood 4.3 mmol/L (3.5-5.5)
--- NOTE | 2022-11-09 06:08 | NUR ---
PT FAMILY PRESENT IN ROOM AT BEGINING OF SHIFT. FAMILY WOULD LIKE PT TO HAVE COG EVAL DONE SODIUM IS NOW IN NORMAL RANGE, WOULD ALSO LIKE TO SPEAK WITH CASE MANAGEMENT ABOUT D/C AND SAFTEY ISSUES. PT CONFUSED AT BEGINING OF SHIFT. RESTART PSYCH MEDS LAST EVENING, PT HAS SLEPT MOST OF SHIFT. BED ALARM ON
[2022-11-09 07:35] VITALS: BP 132/70
--- NOTE | 2022-11-09 10:25 | NUR ---
AM RN NOTE MS LARES IS ABLE TO ANSWER ORIENTATION QUESTIONS FOR NAME, LOCATION, DATE. ABLE TO ENGAGE IN CONVERSATION BUT SOME WANDERING CONVERSATION. SHE TOLD HER SECONDARY ENGLISH TEACHER THAT SHE IS HEARING VOICES. SHE HAS BEEN CALM AND COOPERATIVE WITH PLAN OF CARE. SHE C/O FEELING VERY THIRSTY, REMINDED ABOUT FLUID RESTRICTION AND REASONS FOR FLUID RESTRICTION. SHE WALKED INTO BATHROOM, STEADY GAIT, ACCOMPANIED BY RN. BED ALARM ON TO ENSURE THAT SHE DOES NOT ACCES FLUIDS FROM THE SINK. BED LOW, CALL LIGHT IN REACH.
--- NOTE | 2022-11-09 14:13 | NUR ---
DISCHARGE UPDATE SON RUBA AND DAUGHTER DAYO CAME INTO THE HOSPITAL. THEY VOICED MANY CONCERNS ABOUT HAVING THEIR MOTHER STAY WITH ANY FAMILY MEMBER. IN PRIOR MD NOTE A PLAN OF EITHER PT'S NEICE STAYING WITH HER OR PT GOING TO HER DAUGHTER'S HOME WAS AN OPTION. FAMILY PRESENT SAID THAT DUE TO INCREASING CONCERNS ABOUT THEIR MOTHER'S HALLUCINATIONS AND CONFUSION AND REMARKS SHE HAS MADE TO THEM THEY DO NOT FEEL THAT IT'S APPROPRIATE TO CARE FOR HER AT HOME. THEY WOULD LIKE TO FOLLOW UP WITH THE MAINTENANCE PLUMBER THURSDAY MORNING (TOMORROW) AND DISCUSS OTHER OPTIONS. DR BECK AND COLLECTION ADVISOR AWARE OF THE SITUATION.
--- NOTE | 2022-11-09 15:39 | NUR ---
SHIFT SUMMARY MS LARES HAS DESCRIBED HEARING VOICES TODAY. CONFUSED WANDERING CONVERSATION. SHE HAS BEEN ABLE TO BE REDIRECTED. BED ALARM ON. STAND BY ASSISTANCE WHEN UP TO THE BATHROOM OR OUT OF BED. TONE OF VOICE QUIET, ANXIETIES AND FEARS VERBALISED. FLUID RESTRICTION ADHERED TO. BED LOW, CALL LIGHT IN REACH.
[2022-11-09 16:09] VITALS: BP 137/72
[2022-11-09 19:14] VITALS: BP 128/68
[2022-11-10 04:29] VITALS: BP 131/66
--- NOTE | 2022-11-10 06:22 | NUR ---
PT CALLS FREQUENTLY WHILE AWAKE RELATED TO "BEING AFRAID AND I DONT FEEL SAFE". SLEPT WELL MAJORITY OF SHIFT.
[2022-11-10 07:37] VITALS: BP 127/63
--- NOTE | 2022-11-10 15:11 | NUR ---
DISCHARGE PT & DAUGHTER EDUCATED ON NEW MEDICATIONS AND FOLLOW UP INSTRUCTIONS. PT & DAUGHTER DENIED FURTHER NEED FOR INSTRUCTION AT THIS TIME. MEDS FAXED TO [facility]. NO ACUTE CHANGES IN ASSESSMENT PRIOR TO DC. PT WHEELED OUT BY RUBY.
== END 2022-11-10 15:05 | disposition home or self-care (01) | DRG 640 ==
LOC: ER 14:10 → MEDS 21:53 → ENPENDDIS 11-09 11:32 → MEDS 11-10 15:05
PROVIDERS: Family Medicine; Physician Assistant; Student in an Organized Health Care Education/Training Program; ADMIT Internal Medicine
DX: E87.1 Hypo-osmolality and hyponatremia (principal); G92.8 Other toxic encephalopathy; R63.1 Polydipsia; F22 Delusional disorders; F25.1 Schizoaffective disorder, depressive type; F43.10 Post-traumatic stress disorder, unspecified; J44.9 Chronic obstructive pulmonary disease, unspecified; F41.9 Anxiety disorder, unspecified; K21.9 Gastro-esophageal reflux disease without esophagitis; T43.595A Adverse effect of other antipsychotics and neuroleptics, initial encounter; T43.225A Adverse effect of selective serotonin reuptake inhibitors, initial encounter; Z98.890 Other specified postprocedural states; Z85.3 Personal history of malignant neoplasm of breast; Z79.899 Other long term (current) drug therapy; Z79.82 Long term (current) use of aspirin; Z90.11 Acquired absence of right breast and nipple
CPT/HCPCS: 36415; 80048; 80053; 81003; 82570; 83735; 83935; 84100; 84295; 84300; 84540; 84560; 85025; 93005; 93010; 96374; 99285-25; A9270; J1650; J2405

== ENCOUNTER 2022-12-12 07:45 | Emergency (ER) | payer MEDICARE, OTHER ==
[~2022-12-12] VITALS: Ht 165.1 cm; Wt 58.1 kg
[2022-12-12 09:03] LABS: BASOPHILS ABSOLUTE AUTO 0.05 K/mm3 (0.00-0.23); BASOPHILS PERCENT AUTO 1 % (0-2); EOSINOPHILS ABSOLUTE AUTO 0.17 K/mm3 (0.00-0.68); EOSINOPHILS PERCENT AUTO 2 % (0-6); Hematocrit 34.3 % (33.0-51.0); Hemoglobin 11.1 g/dL (11.5-16.0); IMMATURE GRAN ABSOLUTE AUTO 0.01 K/mm3 (0.00-0.10); IMMATURE GRAN PERCENT AUTO 0 % (0-1); LYMPHOCYTES ABSOLUTE AUTO 0.82 K/mm3 (0.84-5.20); LYMPHOCYTES PERCENT AUTO 12 % (21-46); MONOCYTES ABSOLUTE AUTO 0.69 K/mm3 (0.16-1.47); MONOCYTES PERCENT AUTO 10 % (4-13); Mean Corpuscular HGB 29.7 pg (26.0-34.0); Mean Corpuscular HGB Conc 32.4 g/dL (31.5-36.5); Mean Corpuscular Volume 92 fL (80-100); Mean Platelet Volume 9.3 fL (9.1-12.4); NEUTROPHILS ABSOLUTE AUTO 5.39 K/mm3 (1.96-9.15); NEUTROPHILS PERCENT AUTO 76 % (41-73); Platelet Count 244 K/mm3 (150-400); RDW Coefficient Variation 13.2 % (11.7-14.2); RDW Standard Deviation 43.9 fL (35.1-46.3); Red Blood Cell Count 3.74 M/mm3 (3.80-5.20); White Blood Cell Count 7.13 K/mm3 (4.00-11.30)
[2022-12-12 09:25] LABS: Albumin, Blood 3.3 g/dL (3.4-5.0); Bilirubin, Total 0.5 mg/dL (0.1-1.0); Bun/Creatinine Ratio 11.3 (12.0-20.0); Calcium, Blood 9.1 mg/dL (8.5-10.1); Creatinine, Blood 0.62 mg/dL (0.40-1.00); Globulin, Blood 3.2 g/dL (2.2-4.0); Potassium, Blood 4.3 mmol/L (3.5-5.5); Total Protein, Blood 6.5 g/dL (6.4-8.2)
[2022-12-12] MEDS ORDERED: MULTI-VITAMIN1 EAC2 PO (09:38)
[2022-12-12 12:00] VITALS: BP 122/61
[2022-12-12] MEDS ORDERED: AMOX500 PO (12:04)
== END 2022-12-12 12:29 | disposition home or self-care (01) ==
LOC: ER 07:45
PROVIDERS: Student in an Organized Health Care Education/Training Program
DX: J18.9 Pneumonia, unspecified organism (principal); R07.81 Pleurodynia; Z79.82 Long term (current) use of aspirin
CPT/HCPCS: 71046; 80053; 83735; 84484; 85025; 93005; 93010; A9270; J1885; J7030

== ENCOUNTER 2022-12-22 12:18 | Emergency (ER) | payer MEDICARE, OTHER ==
[~2022-12-22] VITALS: Ht 165.1 cm; Wt 54.4 kg
[~2022-12-22 12:18] MED LIST changes: +AMOX500 PO; +MULTI-VITAMIN1 EAC2 PO
[2022-12-22 12:58] LABS: BASOPHILS ABSOLUTE AUTO 0.05 K/mm3 (0.00-0.23); BASOPHILS PERCENT AUTO 1 % (0-2); EOSINOPHILS ABSOLUTE AUTO 0.17 K/mm3 (0.00-0.68); EOSINOPHILS PERCENT AUTO 2 % (0-6); Hematocrit 36.8 % (33.0-51.0); IMMATURE GRAN ABSOLUTE AUTO 0.01 K/mm3 (0.00-0.10); IMMATURE GRAN PERCENT AUTO 0 % (0-1); LYMPHOCYTES ABSOLUTE AUTO 1.55 K/mm3 (0.84-5.20); LYMPHOCYTES PERCENT AUTO 22 % (21-46); MONOCYTES PERCENT AUTO 7 % (4-13); Mean Corpuscular HGB 29.1 pg (26.0-34.0); Mean Corpuscular HGB Conc 32.6 g/dL (31.5-36.5); Mean Corpuscular Volume 89 fL (80-100); Mean Platelet Volume 8.9 fL (9.1-12.4); NEUTROPHILS ABSOLUTE AUTO 4.72 K/mm3 (1.96-9.15); NEUTROPHILS PERCENT AUTO 68 % (41-73); Platelet Count 372 K/mm3 (150-400); RDW Coefficient Variation 12.9 % (11.7-14.2); RDW Standard Deviation 42.5 fL (35.1-46.3); Red Blood Cell Count 4.12 M/mm3 (3.80-5.20)
[2022-12-22 13:04] LABS: Albumin, Blood 3.6 g/dL (3.4-5.0); Albumin/Globulin Ratio 1.2 (0.8-1.8); Bilirubin, Total 0.7 mg/dL (0.1-1.0); Bun/Creatinine Ratio 16.9 (12.0-20.0); Calcium, Blood 9.4 mg/dL (8.5-10.1); Creatinine, Blood 0.71 mg/dL (0.40-1.00); Potassium, Blood 4.5 mmol/L (3.5-5.5); Total Protein, Blood 6.6 g/dL (6.4-8.2)
[2022-12-22 14:30] VITALS: BP 114/75
== END 2022-12-22 14:50 | disposition home or self-care (01) ==
LOC: ER 12:18
PROVIDERS: Emergency Medicine
DX: R00.2 Palpitations (principal); Z79.899 Other long term (current) drug therapy; Z79.82 Long term (current) use of aspirin
CPT/HCPCS: 71046; 80053; 84484; 85025; 93005; 93010; 99285-25

== ENCOUNTER 2023-02-15 09:38 | Emergency (ER) | payer MEDICARE, OTHER ==
[~2023-02-15] VITALS: Ht 165.1 cm; Wt 58.1 kg
[2023-02-15 10:17] LABS: BASOPHILS ABSOLUTE AUTO 0.06 K/mm3 (0.00-0.23); BASOPHILS PERCENT AUTO 2 % (0-2); EOSINOPHILS ABSOLUTE AUTO 0.27 K/mm3 (0.00-0.68); EOSINOPHILS PERCENT AUTO 8 % (0-6); Hematocrit 39.5 % (33.0-51.0); Hemoglobin 12.7 g/dL (11.5-16.0); IMMATURE GRAN ABSOLUTE AUTO 0.01 K/mm3 (0.00-0.10); IMMATURE GRAN PERCENT AUTO 0 % (0-1); LYMPHOCYTES ABSOLUTE AUTO 1.09 K/mm3 (0.84-5.20); LYMPHOCYTES PERCENT AUTO 30 % (21-46); MONOCYTES ABSOLUTE AUTO 0.34 K/mm3 (0.16-1.47); MONOCYTES PERCENT AUTO 9 % (4-13); Mean Corpuscular HGB 28.1 pg (26.0-34.0); Mean Corpuscular HGB Conc 32.2 g/dL (31.5-36.5); Mean Corpuscular Volume 87 fL (80-100); Mean Platelet Volume 9.2 fL (9.1-12.4); NEUTROPHILS ABSOLUTE AUTO 1.84 K/mm3 (1.96-9.15); NEUTROPHILS PERCENT AUTO 51 % (41-73); Platelet Count 211 K/mm3 (150-400); RDW Coefficient Variation 14.2 % (11.7-14.2); RDW Standard Deviation 45.5 fL (35.1-46.3); Red Blood Cell Count 4.52 M/mm3 (3.80-5.20); White Blood Cell Count 3.61 K/mm3 (4.00-11.30)
[2023-02-15 10:45] LABS: Albumin, Blood 3.6 g/dL (3.4-5.0); Albumin/Globulin Ratio 1.1 (0.8-1.8); Bilirubin, Total 0.5 mg/dL (0.1-1.0); Bun/Creatinine Ratio 12.3 (12.0-20.0); Calcium, Blood 8.9 mg/dL (8.5-10.1); Creatinine, Blood 0.73 mg/dL (0.40-1.00); Globulin, Blood 3.2 g/dL (2.2-4.0); Potassium, Blood 4.2 mmol/L (3.5-5.5); Total Protein, Blood 6.8 g/dL (6.4-8.2)
[2023-02-15 12:15] VITALS: BP 97/59
== END 2023-02-15 12:26 | disposition home or self-care (01) ==
LOC: ER 09:38
PROVIDERS: Student in an Organized Health Care Education/Training Program
DX: R00.2 Palpitations (principal); J44.9 Chronic obstructive pulmonary disease, unspecified; Z79.82 Long term (current) use of aspirin
CPT/HCPCS: 71046; 80053; 85025; 93005; 93010; 99285-25

== ENCOUNTER 2023-09-03 17:39 | Emergency (ER) | payer MEDICARE, OTHER ==
[~2023-09-03] VITALS: Ht 162.6 cm; Wt 59.0 kg
[2023-09-03 18:22] LABS: BASOPHILS ABSOLUTE AUTO 0.07 K/mm3 (0.00-0.23); BASOPHILS PERCENT AUTO 1 % (0-2); EOSINOPHILS ABSOLUTE AUTO 0.68 K/mm3 (0.00-0.68); EOSINOPHILS PERCENT AUTO 11 % (0-6); Hematocrit 33.8 % (33.0-51.0); Hemoglobin 11.3 g/dL (11.5-16.0); IMMATURE GRAN PERCENT AUTO 0 % (0-1); LYMPHOCYTES ABSOLUTE AUTO 1.34 K/mm3 (0.84-5.20); LYMPHOCYTES PERCENT AUTO 21 % (21-46); MONOCYTES ABSOLUTE AUTO 0.78 K/mm3 (0.16-1.47); MONOCYTES PERCENT AUTO 12 % (4-13); Mean Corpuscular HGB 29.7 pg (26.0-34.0); Mean Corpuscular HGB Conc 33.4 g/dL (31.5-36.5); Mean Corpuscular Volume 89 fL (80-100); Mean Platelet Volume 8.8 fL (9.1-12.4); NEUTROPHILS ABSOLUTE AUTO 3.54 K/mm3 (1.96-9.15); NEUTROPHILS PERCENT AUTO 55 % (41-73); Platelet Count 233 K/mm3 (150-400); RDW Coefficient Variation 14.1 % (11.7-14.2); RDW Standard Deviation 45.8 fL (35.1-46.3); Red Blood Cell Count 3.81 M/mm3 (3.80-5.20); White Blood Cell Count 6.41 K/mm3 (4.00-11.30)
[2023-09-03 18:42] LABS: Albumin, Blood 3.2 g/dL (3.4-5.0); Albumin/Globulin Ratio 1.1 (0.8-1.8); Bilirubin, Total 0.3 mg/dL (0.1-1.0); Bun/Creatinine Ratio 21.6 (12.0-20.0); Calcium, Blood 8.8 mg/dL (8.5-10.1); Creatinine, Blood 0.6 mg/dL (0.40-1.00); Globulin, Blood 2.8 g/dL (2.2-4.0); Potassium, Blood 4.3 mmol/L (3.5-5.5)
[2023-09-03] MEDS ORDERED: ATORVALIQ20 MG/5 ML PO (19:47)
[2023-09-03 20:29] LABS: Source, Urine Clean Catch
[2023-09-03 20:36] LABS: Appearance, Urine Clear (Clear); Bilirubin, Urine Neg (Neg); Blood, Urine Neg (Neg); Color, Urine Yellow (P-Yellow); Glucose Qualitative, Urine Neg (Neg); Ketones, Urine Neg (Neg); Leukocyte Esterase, Urine Neg (Neg); Nitrite, Urine Neg (Neg); Protein, Urine Neg (Neg); Specific Gravity, Urine 1.005 (1.003-1.022); Urobilinogen, Urine NORM (Normal)
[2023-09-03 21:00] LABS: Sodium, Urine, Random 15 mmol/L (20-110)
[2023-09-03 21:12] LABS: Osmolality, Urine 202 mos/kg (15-1400)
[2023-09-03 21:30] VITALS: BP 114/75
== END 2023-09-03 21:50 | disposition home or self-care (01) ==
LOC: ER 17:39
PROVIDERS: Emergency Medicine; Physician Assistant
DX: E87.1 Hypo-osmolality and hyponatremia (principal); K21.9 Gastro-esophageal reflux disease without esophagitis; J44.9 Chronic obstructive pulmonary disease, unspecified; F43.10 Post-traumatic stress disorder, unspecified; Z79.82 Long term (current) use of aspirin; Z79.899 Other long term (current) drug therapy
CPT/HCPCS: 71046; 80053; 81003; 83930; 83935; 84300; 84484; 85025; 93005; 93010; 99284-25

== ENCOUNTER 2023-11-17 10:47 | Emergency (ER) | payer MEDICARE, OTHER ==
[~2023-11-17] VITALS: Ht 165.1 cm; Wt 56.7 kg
[~2023-11-17 10:47] MED LIST changes: +ATORVALIQ20 MG/5 ML PO
[2023-11-17 13:16] LABS: BASOPHILS ABSOLUTE AUTO 0.05 K/mm3 (0.00-0.23); BASOPHILS PERCENT AUTO 1 % (0-2); EOSINOPHILS PERCENT AUTO 2 % (0-6); Hematocrit 40.1 % (33.0-51.0); Hemoglobin 13.2 g/dL (11.5-16.0); IMMATURE GRAN PERCENT AUTO 0 % (0-1); LYMPHOCYTES ABSOLUTE AUTO 1.14 K/mm3 (0.84-5.20); LYMPHOCYTES PERCENT AUTO 25 % (21-46); MONOCYTES ABSOLUTE AUTO 0.38 K/mm3 (0.16-1.47); MONOCYTES PERCENT AUTO 8 % (4-13); Mean Corpuscular HGB 29.5 pg (26.0-34.0); Mean Corpuscular HGB Conc 32.9 g/dL (31.5-36.5); Mean Corpuscular Volume 90 fL (80-100); Mean Platelet Volume 8.9 fL (9.1-12.4); NEUTROPHILS ABSOLUTE AUTO 2.95 K/mm3 (1.96-9.15); NEUTROPHILS PERCENT AUTO 64 % (41-73); Platelet Count 227 K/mm3 (150-400); RDW Coefficient Variation 13.4 % (11.7-14.2); Red Blood Cell Count 4.48 M/mm3 (3.80-5.20); White Blood Cell Count 4.62 K/mm3 (4.00-11.30)
[2023-11-17 13:31] LABS: Albumin, Blood 3.9 g/dL (3.4-5.0); Albumin/Globulin Ratio 1.3 (0.8-1.8); Bilirubin, Total 0.9 mg/dL (0.1-1.0); Bun/Creatinine Ratio 17.7 (12.0-20.0); Calcium, Blood 9.5 mg/dL (8.5-10.1); Creatinine, Blood 0.62 mg/dL (0.40-1.00); Globulin, Blood 2.9 g/dL (2.2-4.0); Potassium, Blood 4.4 mmol/L (3.5-5.5); Total Protein, Blood 6.8 g/dL (6.4-8.2)
[2023-11-17 14:00] LABS: Source, Urine Clean Catch
[2023-11-17 14:09] LABS: Appearance, Urine Clear (Clear); Bilirubin, Urine Neg (Neg); Blood, Urine Neg (Neg); Color, Urine Yellow (P-Yellow); Glucose Qualitative, Urine Neg (Neg); Ketones, Urine 2+ (Neg); Leukocyte Esterase, Urine 2+ (Neg); Nitrite, Urine Neg (Neg); Protein, Urine Neg (Neg); Urobilinogen, Urine NORM (Normal)
[2023-11-17 14:31] LABS: Bacteria Few /hpf; Red Blood Cells, Urine Not Seen /hpf (0-2); Squamous Epithelial Cells Rare /hpf (Few)
[2023-11-17 17:28] LABS: Thyroid Stimulating Hormone 0.546 uIU/mL (0.360-4.800)
[2023-11-17 18:45] VITALS: BP 107/46
[2023-11-18] MEDS ORDERED: ALBU90OI INH (10:14)
[2023-11-18] MEDS ORDERED: ATORVASTATIN CA20 MG PO (10:15)
== END 2023-11-17 18:50 | disposition home or self-care (01) ==
LOC: ER 10:47
PROVIDERS: Physician Assistant
DX: R53.83 Other fatigue (principal); R53.1 Weakness; J44.9 Chronic obstructive pulmonary disease, unspecified; K21.9 Gastro-esophageal reflux disease without esophagitis; F43.10 Post-traumatic stress disorder, unspecified; Z79.82 Long term (current) use of aspirin; Z79.899 Other long term (current) drug therapy; Z79.1 Long term (current) use of non-steroidal anti-inflammatories (NSAID)
CPT/HCPCS: 71045; 80053; 81001; 84443; 85025; 87086; 93005; 93010; 99284-25

== ENCOUNTER 2023-11-18 10:03 | Emergency (ER) | payer MEDICARE, OTHER ==
[~2023-11-18] VITALS: Ht 165.1 cm; Wt 56.7 kg
[2023-11-18] MEDS ORDERED: ALBU90OI INH (10:14)
[2023-11-18] MEDS ORDERED: ATORVASTATIN CA20 MG PO (10:15)
[2023-11-18] MEDS ORDERED: NS 1,000 ML IV SCH (10:15)
[2023-11-18 10:50] LABS: BASOPHILS ABSOLUTE AUTO 0.05 K/mm3 (0.00-0.23); BASOPHILS PERCENT AUTO 2 % (0-2); EOSINOPHILS PERCENT AUTO 3 % (0-6); Hematocrit 38.5 % (33.0-51.0); Hemoglobin 12.8 g/dL (11.5-16.0); IMMATURE GRAN PERCENT AUTO 0 % (0-1); LYMPHOCYTES PERCENT AUTO 27 % (21-46); MONOCYTES ABSOLUTE AUTO 0.38 K/mm3 (0.16-1.47); MONOCYTES PERCENT AUTO 11 % (4-13); Mean Corpuscular HGB 30.2 pg (26.0-34.0); Mean Corpuscular HGB Conc 33.2 g/dL (31.5-36.5); Mean Corpuscular Volume 91 fL (80-100); Mean Platelet Volume 8.9 fL (9.1-12.4); NEUTROPHILS ABSOLUTE AUTO 1.92 K/mm3 (1.96-9.15); NEUTROPHILS PERCENT AUTO 57 % (41-73); Platelet Count 204 K/mm3 (150-400); RDW Coefficient Variation 13.5 % (11.7-14.2); RDW Standard Deviation 44.7 fL (35.1-46.3); Red Blood Cell Count 4.24 M/mm3 (3.80-5.20); White Blood Cell Count 3.35 K/mm3 (4.00-11.30)
[2023-11-18 11:22] LABS: Albumin, Blood 3.5 g/dL (3.4-5.0); Albumin/Globulin Ratio 1.2 (0.8-1.8); Bilirubin, Total 0.6 mg/dL (0.1-1.0); Bun/Creatinine Ratio 18.3 (12.0-20.0); Calcium, Blood 9.1 mg/dL (8.5-10.1); Creatinine, Blood 0.6 mg/dL (0.40-1.00); Free Thyroxine 1.02 ng/dL (0.70-1.60); Globulin, Blood 2.8 g/dL (2.2-4.0); Potassium, Blood 4.1 mmol/L (3.5-5.5); Total Protein, Blood 6.3 g/dL (6.4-8.2); Triiodothyronine, Free 2.2 pg/mL (2.18-3.98)
[2023-11-18 14:30] VITALS: BP 134/72
== END 2023-11-18 15:10 | disposition home or self-care (01) ==
LOC: ER 10:03
PROVIDERS: Emergency Medicine
DX: R53.83 Other fatigue (principal); K21.9 Gastro-esophageal reflux disease without esophagitis; J44.9 Chronic obstructive pulmonary disease, unspecified; F43.10 Post-traumatic stress disorder, unspecified; Z79.82 Long term (current) use of aspirin; Z79.899 Other long term (current) drug therapy
CPT/HCPCS: 70450; 80053; 84439; 84481; 84484; 85025; 93005; 93010; 93242; 99284-25; J7030

== ENCOUNTER 2023-12-29 15:26 | Emergency (ER) | payer MEDICARE, OTHER ==
[~2023-12-29] VITALS: Ht 165.1 cm; Wt 54.4 kg
[~2023-12-29 15:26] MED LIST changes: +ALBU90OI INH; +ALPR.5 PO; +NAPPHEOPSO BOTHEYES
[2023-12-29 15:49] LABS: BASOPHILS ABSOLUTE AUTO 0.03 K/mm3 (0.00-0.23); BASOPHILS PERCENT AUTO 1 % (0-2); EOSINOPHILS ABSOLUTE AUTO 0.09 K/mm3 (0.00-0.68); EOSINOPHILS PERCENT AUTO 2 % (0-6); Hematocrit 34.2 % (33.0-51.0); Hemoglobin 11.5 g/dL (11.5-16.0); IMMATURE GRAN ABSOLUTE AUTO 0.01 K/mm3 (0.00-0.10); IMMATURE GRAN PERCENT AUTO 0 % (0-1); LYMPHOCYTES ABSOLUTE AUTO 0.99 K/mm3 (0.84-5.20); LYMPHOCYTES PERCENT AUTO 19 % (21-46); MONOCYTES ABSOLUTE AUTO 0.51 K/mm3 (0.16-1.47); MONOCYTES PERCENT AUTO 10 % (4-13); Mean Corpuscular HGB Conc 33.6 g/dL (31.5-36.5); Mean Corpuscular Volume 89 fL (80-100); Mean Platelet Volume 8.8 fL (9.1-12.4); NEUTROPHILS ABSOLUTE AUTO 3.67 K/mm3 (1.96-9.15); NEUTROPHILS PERCENT AUTO 69 % (41-73); Platelet Count 214 K/mm3 (150-400); RDW Coefficient Variation 13.6 % (11.7-14.2); RDW Standard Deviation 44.6 fL (35.1-46.3); Red Blood Cell Count 3.83 M/mm3 (3.80-5.20)
[2023-12-29 16:08] LABS: Albumin, Blood 3.5 g/dL (3.4-5.0); Albumin/Globulin Ratio 1.3 (0.8-1.8); Bilirubin, Total 0.9 mg/dL (0.1-1.0); Bun/Creatinine Ratio 21.2 (12.0-20.0); Calcium, Blood 8.8 mg/dL (8.5-10.1); Creatinine, Blood 0.52 mg/dL (0.40-1.00); Globulin, Blood 2.6 g/dL (2.2-4.0); Potassium, Blood 3.8 mmol/L (3.5-5.5); Total Protein, Blood 6.1 g/dL (6.4-8.2)
[2023-12-29 18:15] VITALS: BP 140/72
== END 2023-12-29 18:46 | disposition home or self-care (01) ==
LOC: ER 15:26
PROVIDERS: Emergency Medicine
DX: I47.10 Supraventricular tachycardia, unspecified (principal); J44.9 Chronic obstructive pulmonary disease, unspecified; K21.9 Gastro-esophageal reflux disease without esophagitis; F41.9 Anxiety disorder, unspecified; Z79.82 Long term (current) use of aspirin; Z79.899 Other long term (current) drug therapy
CPT/HCPCS: 80053; 85025; 93005; 93010; 99285-25

== ENCOUNTER → 2024-01-26 | Outpatient (CLI) | payer MEDICARE, OTHER ==
[2024-01-26 19:43] LABS: BASOPHILS ABSOLUTE AUTO 0.05 K/mm3 (0.00-0.23); BASOPHILS PERCENT AUTO 1 % (0-2); EOSINOPHILS ABSOLUTE AUTO 0.12 K/mm3 (0.00-0.68); EOSINOPHILS PERCENT AUTO 2 % (0-6); Hematocrit 36.5 % (33.0-51.0); Hemoglobin 12.1 g/dL (11.5-16.0); IMMATURE GRAN ABSOLUTE AUTO 0.01 K/mm3 (0.00-0.10); IMMATURE GRAN PERCENT AUTO 0 % (0-1); LYMPHOCYTES ABSOLUTE AUTO 1.04 K/mm3 (0.84-5.20); LYMPHOCYTES PERCENT AUTO 21 % (21-46); MONOCYTES ABSOLUTE AUTO 0.44 K/mm3 (0.16-1.47); MONOCYTES PERCENT AUTO 9 % (4-13); Mean Corpuscular HGB 29.9 pg (26.0-34.0); Mean Corpuscular HGB Conc 33.2 g/dL (31.5-36.5); Mean Corpuscular Volume 90 fL (80-100); Mean Platelet Volume 9.7 fL (9.1-12.4); NEUTROPHILS ABSOLUTE AUTO 3.25 K/mm3 (1.96-9.15); NEUTROPHILS PERCENT AUTO 66 % (41-73); Platelet Count 255 K/mm3 (150-400); RDW Coefficient Variation 13.4 % (11.7-14.2); RDW Standard Deviation 44.5 fL (35.1-46.3); Red Blood Cell Count 4.05 M/mm3 (3.80-5.20); White Blood Cell Count 4.91 K/mm3 (4.00-11.30)
[2024-01-26 19:53] LABS: Albumin/Globulin Ratio 1.7 (0.8-1.8); Bilirubin, Total 0.9 mg/dL (0.1-1.0); Bun/Creatinine Ratio 26.2 (12.0-20.0); Creatinine, Blood 0.57 mg/dL (0.40-1.00); Globulin, Blood 2.4 g/dL (2.2-4.0); Potassium, Blood 4.5 mmol/L (3.5-5.5); Total Protein, Blood 6.4 g/dL (6.4-8.2)
== END ==
LOC: LAB 19:00 → LAB SHORT 19:00
PROVIDERS: Student in an Organized Health Care Education/Training Program
DX: R10.9 Unspecified abdominal pain (principal)
CPT/HCPCS: 80053; 83690; 85025

== ENCOUNTER 2024-01-28 12:01 | Emergency (ER) | payer MEDICARE, OTHER ==
[~2024-01-28] VITALS: Ht 165.1 cm; Wt 54.4 kg
[2024-01-28 12:54] LABS: BASOPHILS ABSOLUTE AUTO 0.04 K/mm3 (0.00-0.23); BASOPHILS PERCENT AUTO 1 % (0-2); EOSINOPHILS PERCENT AUTO 2 % (0-6); Hematocrit 36.9 % (33.0-51.0); Hemoglobin 12.4 g/dL (11.5-16.0); IMMATURE GRAN ABSOLUTE AUTO 0.01 K/mm3 (0.00-0.10); IMMATURE GRAN PERCENT AUTO 0 % (0-1); LYMPHOCYTES ABSOLUTE AUTO 0.99 K/mm3 (0.84-5.20); LYMPHOCYTES PERCENT AUTO 16 % (21-46); MONOCYTES ABSOLUTE AUTO 0.55 K/mm3 (0.16-1.47); MONOCYTES PERCENT AUTO 9 % (4-13); Mean Corpuscular HGB 30.4 pg (26.0-34.0); Mean Corpuscular HGB Conc 33.6 g/dL (31.5-36.5); Mean Corpuscular Volume 90 fL (80-100); Mean Platelet Volume 8.8 fL (9.1-12.4); NEUTROPHILS PERCENT AUTO 73 % (41-73); Platelet Count 238 K/mm3 (150-400); RDW Coefficient Variation 13.3 % (11.7-14.2); RDW Standard Deviation 44.5 fL (35.1-46.3); Red Blood Cell Count 4.08 M/mm3 (3.80-5.20); White Blood Cell Count 6.19 K/mm3 (4.00-11.30)
[2024-01-28 13:12] LABS: Albumin, Blood 3.7 g/dL (3.4-5.0); Albumin/Globulin Ratio 1.4 (0.8-1.8); Bilirubin, Total 0.9 mg/dL (0.1-1.0); Bun/Creatinine Ratio 27.5 (12.0-20.0); Calcium, Blood 8.5 mg/dL (8.5-10.1); Creatinine, Blood 0.58 mg/dL (0.40-1.00); Globulin, Blood 2.7 g/dL (2.2-4.0); Potassium, Blood 4.5 mmol/L (3.5-5.5); Total Protein, Blood 6.4 g/dL (6.4-8.2)
[2024-01-28 14:39] VITALS: BP 135/78
== END 2024-01-28 14:43 | disposition home or self-care (01) ==
LOC: ER 12:01
PROVIDERS: Physician Assistant
DX: R10.11 Right upper quadrant pain (principal); E87.1 Hypo-osmolality and hyponatremia; Z79.82 Long term (current) use of aspirin; Z79.899 Other long term (current) drug therapy
CPT/HCPCS: 76705; 80053; 83690; 85025